=== PATIENT | female | born 1980 | race Caucasian/White ===

== ENCOUNTER 2020-08-19 05:57 | Emergency (ER) | payer OTHER ==
[2020-08-19 07:22] LABS: HEMOGLOBIN 13.9 gm/dl (12.3-15.3); RED BLOOD COUNT 4.4 M/UL (4.00-5.10); WHITE BLOOD COUNT 10.3 K/UL (4.5-11.0)
[2020-08-19 07:41] LABS: BUN/CREATININE RATIO 14 (0-10)
[2020-08-19] MEDS ORDERED: IBUPROFEN600 MG PO (09:40)
== END 2020-08-19 10:30 | disposition home or self-care (01) ==
LOC: ER1 05:57
PROVIDERS: Emergency Medicine
DX: K02.9 Dental caries, unspecified (principal); I10 Essential (primary) hypertension
CPT/HCPCS: 70487; 80053; 83605; 85025; 87040; 96365; 96375; 99284; J0295; J1885; Q9967

== ENCOUNTER 2020-11-24 18:41 | Emergency (ER) | payer OTHER ==
[~2020-11-24 18:41] MED LIST: IBUPROFEN600 MG PO
== END 2020-11-24 21:01 | disposition home or self-care (01) ==
LOC: ER1 18:41
DX: Z23 Encounter for immunization (principal); U07.1 COVID-19; I10 Essential (primary) hypertension; E78.5 Hyperlipidemia, unspecified; E03.9 Hypothyroidism, unspecified; Z90.49 Acquired absence of other specified parts of digestive tract
CPT/HCPCS: 99283; M0243